=== PATIENT | female | born 1995 | race Caucasian/White ===

== ENCOUNTER 2025-07-05 15:57 | Emergency (ER) | payer OTHER, SELFPAY ==
[2025-07-05 16:07] VITALS: BP 126/66; PULSE 83; RESP 18; TEMP 36.3; O2SAT 99; BMI 39.3
--- NOTE | 2025-07-05 16:07 | ED.ANIMALBIT ---
HPI - Animal Bite General Chief Complaint: Animal Bite Stated Complaint: Cat bite Time Seen by Provider: 07/05/25 16:12 Source: patient Mode of arrival: ambulatory Limitations: no limitations History of Present Illness ED Provider: Tasneem Holly APRN HPI narrative: 30-year-old female who is healthy is right-hand dominant presents the ER with complaints of cat bite to the right hand. 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 Today she was feeding a feral cat when it bit her in the right hand. Rabies vaccine is unknown. The patient has ever been vaccinated for rabies. She has no other complaints Related Data Previous Rx's ?Medication ?Instructions ?Recorded amoxicillin 875 mg-potassium 1 tab PO BID #10 tabs 07/05/25 clavulanate 125 mg tablet Allergies Allergy/AdvReac Type Severity Reaction Status Date / Time No Known Allergies Allergy Verified 07/05/25 16:09 Review of Systems Review of Systems: Yes all other systems are reviewed and are negative Constitutional: Constitutional: Reports no additional constitutional complaints, Denies body ache(s), Denies chills, Denies fever(s), Denies headache(s) and Denies weakness Eyes: Eyes: Reports no additional eye complaints and Denies change in vision ENT: Reports system reviewed and no additional complaints, except as documented, Denies dizziness, Denies headache(s), Denies nasal congestion, Denies nasal discharge and Denies neck pain Cardiovascular: Cardiovascular: Reports no additional cardiovascular complaints, Denies chest pain, Denies leg edema and Denies dyspnea Respiratory: Respiratory: Reports no additional respiratory complaints, Denies cough and Denies dyspnea Gastrointestinal: Gastrointestinal: Reports no additional gastrointestinal complaints, Denies abdominal pain, Denies diarrhea, Denies nausea and Denies vomiting Genitourinary: Genitourinary: Reports no additional female genitourinary complaints and Denies urinary incontinence Musculoskeletal: Musculoskeletal: Reports no additional musculoskeletal complaints, Denies back pain, Denies arthralgias, Denies joint swelling, Denies neck pain, Denies numbness and Denies tingling Integumentary/Breasts: Skin/Breast: Reports system reviewed and no additional complaints, except as docu, Denies rash and Reports wounds Neurologic: Reports system reviewed and no additional complaints, except as documented, Denies Abnormal speech present, Denies dizziness, Denies headache(s), Denies numbness, Denies tingling and Denies weakness [facility] Past Medical History Attestation statement: The following information was validated with the patient. Source: old records reviewed and nursing notes reviewed Social History Social History Advance Directives: No Advance Directives Information Provided: No Physical Exam ED Vital Signs: Vital Signs - 24 hr 07/05/25 16:07 Temperature 97.3 F Pulse Rate 83 Respiratory Rate 18 Blood Pressure 126/66 Pulse Oximetry 99 Oxygen Delivery Method Room Air BMI result Body Mass Index 39.3 Const General: cooperative, healthy appearing, comfortable and no acute distress Orientation/consciousness: patient oriented x3 Limitations: no limitations HENMT Head: Yes normal to inspection Ears: hearing grossly normal bilaterally General nose exam: Normal external nose present Face and sinus: Yes normal facial exam Mouth: Normal oral and palatal mucosa present Throat: Yes posterior oropharynx normal Eyes General: appearance normal, both eyes and all related structures Pupils: Equal, round and reactive pupils present Neck Neck: Yes normal visual inspection Chest Chest palpation & inspection: normal inspection of the chest Resp Effort & Inspection: normal respiratory effort Auscultation: clear to auscultation bilaterally Cardio Rate: regular rate Rhythm: regular rhythm Peripheral pulses: Peripheral pulses 2+ throughout GI Inspection: Yes normal to inspection Palpation (GI): Soft to palpation and nontender Auscultation: normal bowel sounds Back/Spine/Pelvis Thoracic/Lumbar Spine: thoracic and lumbar spine normal to inspection Skin General skin exam: no rashes or lesions noted Neuro General: patient oriented x3, no focal motor deficits and normal sensation to monofilament Cranial nerves: Yes Equal, round and reactive pupils present Cognition (Neuro): normal cognition Speech: No Abnormal speech present Gait exam (Neuro): Normal gait present Motor exam (neuro): 5/5 motor strength present throughout Extrem Other: Small abrasion noted to the right dorsal hand Course Course Course Narrative: Tasneem Holly DINKEY MOTOR OPERATOR 07/05/25 1717 This is a rapid medical exam. Deferred additional HPI, ROS, PE to primary provider. 30 yo female with no known medical history, right hand dominant here with cat bite to right hand. This was a feral cat with unknown rabies vaccine series. Will order rabies series VSS Medications Administered Discontinued Medications Generic Name Dose Route Start Last Admin Trade Name Freq PRN Reason Stop Dose Admin Rabies Immune Globulin 2,413.12 unit 07/05/25 16:11 07/05/25 16:37 Rabies Immune Globulin/Pf 1,500 Unit/5 Ml Vial 20 unit/kg (2413.12 unit) 07/05/25 16:12 2,413.12 unit IM Administration ONCE ONE Rabies Vaccine 1 ml 07/05/25 16:11 07/05/25 16:36 Rabies Vaccine (Pcec)/Pf 1 Ml Vial IM 07/05/25 16:12 1 ml .ONCE ONE Administration Medical Decision Making Medical Decision Making [facility] Narrative: 30 year-old female who is healthy is right-hand dominant presents the ER with complaints of cat bite to the right hand. 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 Today she was feeding a feral cat when it bit her in the right hand. Rabies vaccine is unknown. The patient has ever been vaccinated for rabies. She has no other complaints Small abrasion to right hand The site was cleansed and a bandage was applied. I injected 1ml of rabies antivert (IGG) into the site. She received the additional antibody IM by nursing as well as the rabies vaccine. I ordered her follow-up rabies through the infusion center. I Notified the statistical secretary (Blanca). I will send her home on pptx antibiotics. Reviewed worrisome signs and symptoms of when to return to the emergency room. Comfortable plan for discharge home Differential Diagnosis Differential Diagnoses: The differential diagnosis associated with the presentation includes Cat bite Admission/Observation Consideration of admission/observation: Escalation of care including admission/observation considered Lab Data [facility] Lab Attestation statement: I reviewed the patient's lab results. Prescription Management I considered prescription management with: Antibiotic Discharge Plan Discharge Clinical Impression: Cat bite Patient Disposition: Home, Self-Care Instructions: Animal Bite (ED) Additional Instructions: Rabies follow up with the [facility] Infusion Center: Upon discharge from the ED today, you will be contacted by the Infusion Center to schedule your follow up Rabies vaccines. You will need a total of 3 more injections. If for some reason you do not receive a call, please call the Infusion Center directly at [phone]. Follow up with your primary care provider after completion of the vaccine to have a titer drawn to ensure the vaccines effectiveness. Prescriptions: New amoxicillin-pot clavulanate 875-125 mg tablet 1 tab PO BID Qty: 10 0RF Referrals: Franci Wynne, SOFTWARE LICENSING ANALYST [Primary Care Provider, Internal Medicine] Stand Alone Forms: Work/School Release Print Language: Mozambican
[2025-07-05] MEDS: Rabies Vaccine (PCEC)/PF 1 ML VIAL IM (16:36)
[2025-07-05 16:52] VITALS: BP 126/66; PULSE 83; RESP 18; TEMP 36.3; O2SAT 99
--- OUTSIDE RECORDS SUMMARY | 2025-07-05 17:16 | XMS_ITS | Patient Health Record ---
Author Organization [facility] [address] [facility] Address [address] [place] [address] Care Team Providers Care Diabetes Educator Name Role Phone Shana Tony Unavailable [phone] Reason For Referral No Information Medications Medication SIG (Take, Route, Fr equency, Duration) Notes Start Date End Date Status Apri 0.15-30 MG-MCG 1 tablet Orally Once a day, appointment needed for additional refills. No refills after this until one is made. [facility]- 04/04/2014 Ac tive Apri 0.15MG 1 ORAL daily; Duration: -3 [facility]- 03/07/2013 Active Problems Problem Type SNOMED Code ICD Code Onset Dates Problem Status W/U Status Risk Notes Problem Dysmenorrhea (851088804) Dysmenorrhea (625.3) Active confirmed Diag Problem Contraception care education done (700284313845794) General counseling for prescription of oral contraceptives (V25.01) Active confirmed Diag Problem Surveillance of oral contraception done ([id number]) Surveillance of previously prescribed contraceptive pill (V25.41) Active confirmed Diag Plan Of Treatment No Information Insurance Providers Payer Name Payer Address Payer Phone Subscriber Number Group Number Insured Name Patient Relationship to Insured Coverage Start Date Coverage End Date [employer] [place] [address] [place] [address] [id number] HARMEET HUDSON Self - patient is the insured
--- OUTSIDE RECORDS SUMMARY | 2025-07-05 17:16 | XMS_ITS ---
Author Name [facility] Organization Unknown History of Medication Use Medication Directions Dispensed Refills Start Date End Date Stat 10/01 () 1 mg-20 mcg tablet Take 1 tablet every day by oral route. 01/27/2024 active metronidazole 500 mg tablet Take 1 tablet twice a day by oral route for 5 days. 01/27/2024 active ferrous sulfate 325 (65 FE) MG tablet Take 2 hours before or 4 hours after acid reducers. Take 1 tablet on alternate days. 11/28/2023 active DULoxetine (CYMBALTA) 60 MG capsule TAKE 1 CAPSULE DAILY 10/07/2023 11/28/2023 active norethindrone-ethiny l estradiol (10/01) 1-20 MG-MCG per tablet Take 1 tablet by mouth daily. 08/12/2023 active metronidazole 500 mg tablet active 10/01 () 1 mg-20 mcg tablet active duloxetine 60 mg capsule,delayed release sprinkle Take 1 capsule every day by oral route. active Problems Problem Status Onset Date Problem Type Date of Resoluti on Source Iron deficiency active 2024-03-06 ProblemAct [facility] Thrombocytosis active 2024-03-[address] Depressive disorder active 2024-01-27 ProblemAct [facility] Anxiety active 2024-01-27 ProblemAct [facility] Abnormal cervical Papanicolaou smear active 2024-01-27 ProblemAct [facility] Encounters Encounter Type Encounter Reason Primary Diagnosis Location Date Ambulatory Medication Problem Medication Problem [facility] 05/14/2025 Ambulatory Hip Pain Hip Pain [facility] 04/02/2025 Ambulatory Follow-up Follow-up [facility] 03/06/2024 Ambulatory [place] [facility] 02/28/2024 Ambulatory no current diagnosis no current diagnosis [facility] 01/27/2024 Ambulatory Follow-up Follow-up [facility] 01/23/2024 Ambulatory [facility] 01/12/2024 Ambulatory Follow-up Follow-up [facility] 11/28/2023 Ambulatory [facility] 11/07/2023 Ambulatory Thrombocytosis, unspecified Thrombocytosis, unspecified [facility] 11/07/2023 Ambulatory Anxiety disorder, unspecified Anxiety disorder, unspecified [facility] 08/12/2023 Ambulatory [facility] 07/15/2023 Ambulatory Collabor[facility] 05/05/2023 Care Team Organization Name Specialty Phone Email Start Date End Da te [facility] 01/27/2024 [facility] 01/27/2024 [facility] [place] [facility] 10/02/2023 06/12/2025 [facility] Dior [facility]ers Primary Care 10/02/202301/05 [facility] Primary [facility] 08/12/2023 06/12/2025 [facility] 08/12/2023 02/17/2024 [facility] NO PCP Primary Care 08/12/2023 08/12/2023
--- OUTSIDE RECORDS SUMMARY | 2025-07-05 17:16 | XMS_ITS | Encounter Summary ---
Author Organization [facility] Address [address] [place] [address] Care Team Providers Care Dye Blender Name Role Phone Franci Wynne APRN Primary Care Provider + Encounter Details Date Type Department Care Team (Late st Contact Info) Description 11/15/2023 Scanned Document [facility] Department Of Hematology/Oncology [place] [address] [place] [address] Savanah Snow MD [address] [place] [address] Social History Tobacco Use Types Packs/Day Years Used Date Smoking Tobacco: Never Smokeless Tobacco: Never Alcohol Use Standard Drinks/Week Comments Yes 2 (1 standard drink = 0.6 oz pur e alcohol) socially, occasionally at home PHQ-2 Answer Date Recorded PHQ-2 Total Score 0 08/12/2023 Comments No Sex and Gender Information Value Date Recorded Sex Assigned at Female 07/26/2023 10:03 PM EST Legal Sex Female 6:56 PM EST Gender Identity Not on file Sexual Orientation Not on file documented as of this encounter Plan of Treatment Upcoming Encounters Date Type Department Care Team (Late Contact Info) Description 07/15/2025 10:15 AM EST Office Visit [facility] [address] [place] [address] Franci Wynne APRN [address] [facility] [address] [place] [address] documented as of this encounter Procedures Procedure Name Priority Date/Time Associated Diagnosis Comments LAB RESULT 11/15/2023 4:09 AM EST documented in this encounter Results * LAB RESULT (11/15/2023 4:09 AM EST) us Savanah Snow MD HX AMB PROCEDURES Final Result documented in this encounter Visit Diagnoses Not on filedocumented in this encounter Care Teams Dye Blender Relationship Specialty Start Date End Date Franci Wynne APRN [address] [place] [address] PCP - General Internal Medicine 08/12/23 documented as of this encounter
--- OUTSIDE RECORDS SUMMARY | 2025-07-05 17:16 | XMS_ITS | Clinical Summary ---
Author Organization Formerly [facility] Address [address] [place] [address] Care Team Providers Care Test Engineer Name Role Phone Franci Wynne APRN Primary Care Provider + Allergies No known active allergies Medications norethindrone-eth inyl estradiol (10/01) 1-20 MG-MCG per tabletIndications :Encounter for other general counseling or advice on contraception Take 1 tablet by mouth daily. 90 tablet 3 08/12/20 23 Active ferrous sulfate 325 (65 FE) MG tabletIndications :Iron deficiency Take 2 hours before or 4 hours after acid reducers. Take 1 tablet on alternate days. 30 tablet 1 11/28/19 24 Active multivitamin Tab tablet Take 1 tablet by mouth daily. Active DULoxetine (CYMBALTA) 30 MG capsuleIndication s:Anxiety Take 1 capsule (30 mg total) by mouth daily. Please take with 20mg for a total dose of 50mg daily 90 capsule 05/14/20 25 Active DULoxetine (CYMBALTA) 20 MG capsuleIndication s:Anxiety Take 1 capsule (20 mg total) by mouth daily. Please take with 30mg capsule for total dose of 50mg 90 capsule 1 05/14/20 25 Active FLUoxetine (PROzac) 10 MG capsuleIndication s:Mixed obsessional thoughts and acts TAKE ONE CAPSULE BY MOUTH EVERY DAY 30 capsule 06/26/20 25 Active FLUoxetine (PROzac) 10 MG capsuleIndication s:Mixed obsessional thoughts and acts Take 1 capsule (10 mg total) by mouth daily. 30 capsule 05/14/20 025 Discontinued Active Problems Problem Noted Date Diagnosed Date Thrombocytosis 03/06/2024 Iron deficiency 03/06/2024 Encounters Date Type Department Care Team Description 06/25/[address] [place] [address] Franci Wynne APRN Mixed obsessional thoughts and acts 05/14/2025 3:15 PM EDT Office Visit [facility] [address] [facility] [address] [place] [address] Franci Wynne, CAMI Anxiety (Primary Dx); Mixed obsessional thoughts and acts 05/14/2025 Travel 05/05/2025 Orders Only [facility] [address] [facility] [address] [place] [address] Franci Wynne, PROCESS CONTROL TECHNICIAN Mixed obsessional thoughts and acts (Primary Dx) from Last 3 Months Immunizations Immunization Administration Dates Next Due Influenza, Unspecified 08/14/2024,06/23/2023 Family History Medical History Relation Name Comments Ulcers Father Dementia Maternal Grandfather Oz Dementia Maternal Grandmother Pat Basal cell carcinoma Mother Alysha Cancer Mother Alysha basal cell carc inoma - one mole, removed in June 2023 Cancer Paternal Grandfather Valerio Lung an d brain cancer Relation Name Status Comments Father Maternal Grandfather Oz Maternal Grandmother Pat Mother Alysha Paternal Grandfather Valerio Alive Social History Tobacco Use Types Packs/Day Years Used Date Smoking Tobacco: Never Smokeless Tobacco: Never Tobacco Cessation:Counseling Given: Not Answered Alcohol Use Standard Drinks/Week Comments Yes 2 (1 standard drink = 0.6 oz pur e alcohol) socially, occasionally at home [facility] Utilities Answer Date Recorded In the past 12 months has [employer], gas, oil, or water company threatened to shut off services in your home? No 12/05/2024 Social Connection and Isolation Panel Answer Date Recorded In a typical week, how many times do you talk on the phone with family, friends, or neighbors? Three times a week 12/05/2024 Frequency of Social Gatherin gs with Friends and Family Not on file 12/05/2024 Attends [employer] Services Not on file 12/05 Active Member of Clubs or Organizations Not on f ile 12/05/2024 Attends Club or Organization Meetings Not on frederick e 12/05/2024 Marital Status Not on file 12/05/2024 AUDIT-C Answer Date Recorded Q1: How often do you have a drink containing alc ohol? 2-4 times a month 12/05/2024 Q2: How many drinks containi ng alcohol do you have on a typical day when you are drinking? 1 or 2 12/05/2024 Frequency of Binge Drinking Not on file 11/11 PHQ-2 Answer Date Recorded PHQ-2 Total Score 0 08/12/2023 Hunger Vital Sign Answer Date Recorded Within the past 12 months, y ou worried that your food would run out before you got the money to buy more. Never true 12/06/19 25 Within the past 12 months, t he food you bought just didn't last and you didn't have money to get more. Never true 12/05/2024 PRAPARE - Transportation Answer Date Re corded In the past 12 months, has l ack of transportation kept you from medical appointments or from getting medications? No 11/11 In the past 12 months, has l ack of transportation kept you from meetings, work, or from getting things needed for daily living? No 12/05/2024 Housing Stability Vital Sign Answer Junior e Recorded In the last 12 months, was t here a time when you were not able to pay the mortgage or rent on time? No 12/05/2024 In the past 12 months, how m any times have you moved where you were living? 0 12/05/2024 At any time in the past 12 m [facility], were you homeless or living in a long term (including now)? No 12/05/2024 Education Answer Date Recorded What is the highest level of school you have completed or the highest degree you have received? Bachelor's degree (e.g., BA, AB, BS) 12/05/2024 Comments No Sex and Gender Information Value Date Recorded Sex Assigned at Female 07/26/2023 10:03 PM EST Legal Sex Female 6:56 PM EST Gender Identity Not on file Sexual Orientation Not on file Last Filed Vital Signs Vital Sign Reading Time Taken Comments Blood Pressure 120/88 05/14/2025 3:09 PM EDT Pulse 81 05/14/2025 3:09 PM EDT Temperature 36.2 C (97.1 F) 05/14/2025 3:09 PM EDT Respiratory Rate 16 05/14/2025 3:09 PM EDT Oxygen Saturation 98% 05/14/2025 3:09 PM EDT Inhaled Oxygen Concentration - - Weight 118 kg (260 lb 9.6 oz) 05/14/2025 3:09 PM EDT Height 177.8 cm (5' 10 ) 05/14/2025 3:09 PM EDT Body Mass Index 37.39 05/14/2025 3:09 PM EDT Plan of Treatment Upcoming Encounters Date Type Department Care Team (Late st Contact Info) Description 07/15/2025 10:15 AM EST Office Visit [facility] [address] [facility] [address] [place] [address] Franci Wynne APRN [address] [facility] [address] [place] [address] Health Maintenance Due Date Last Done Comments DTaP/Tdap/Td Vaccines (1 - Tdap) 01/02/2015 Hepatitis B Vaccines (1 of 3 - 19+ 3-dose series) 01/02/2015 Influenza Vaccine 04/12/2025 08/14/2024, 06/23/2023 COVID-19 Vaccine (1 - 2023-2 5 season) 2025 Physical 08/12/2026 08/12/2023 Pap Smear (Ages 21-65) 01/26/2027 01/27/2024 HIV Screening Completed 09/15/2023 Hepatitis C Virus Screening Completed 09/15/2023 HPV Vaccines (No Doses Required) Completed Pneumococcal Vaccine: Pediatric (0-5 Years) and At-Risk Patients (6 to 49 Years) Aged Out No longer eligible b ased on patient's age to complete this topic Procedures Procedure Name Priority Date/Time Associated Diagnosis Comments THINPREP PAP TEST (POULTRY CUTTER) WITH HPV REFLEX Routine 01/27/2024 12:00 AM EDT HIV 1/2 AG/AB CMIA REFLEX TO CONFIRMATION Routine 09/15/2023 10:19 AM EST Encounter for screening for HIV HEPATITIS C VIRUS (HCV) ANTIBODY Routine 09/15/2023 10:19 AM EST Need for hepatitis C screening test from Last 3 Months or Most Recently Relevant to Health Maintenance Results * ThinPrep Pap Test (Health Plan Advisor) with HPV Reflex (01/27/2024 12:00 AM EDT) Clinical Information [facility] Comment:None given LMP: [facility] Comment:NONE GIVEN Previous PAP: [facility] Comment:NONE GIVEN Previous Biopsy [facility] Comment:NONE GIVEN Source: [facility] Comment:Cervix, Endocervix Statement of Adequacy: [facility] Comment: Satisfactory for evaluation. Endocervical/transformation zone component absent. Interpretation/Resu lt: [facility] Comment: Cytology Results: Negative for intraepithelial lesion or malignancy. Comment: [facility] Comment: This Pap test has been evaluated with computer assisted technology. Mandarin Tutor: [facility] Comment: [facility], CT(ASCP) CT screening location: [place] [address] Review Mandarin Tutor: [facility] Comment: [facility], CT(ASCP) CT screening location: [place] [address] Comment [facility] Comment: EXPLANATORY NOTE: The Pap is a screening test for cervical cancer. It is not a diagnostic test and is subject to false negative and false positive results. It is most reliable when a satisfactory sample, regularly obtained, is submitted with relevant clinical findings and history, and when the Pap result is evaluated along with historic and current clinical information. 01/27/2024 01/28/2024 5:0 6 PM EDT Narrative [facility] - 01/31/2024 4:29 PM EDT [id number] NG us Carrie Carey PROCESS CONTROL TECHNICIAN LAB AMB PATH/CYTO ORDERA BLES Final Result [facility] [address] [facility] [address], [place] [address] * HIV 1/2 Ag/Ab CMIA Reflex to Confirmation (09/15/2023 10:19 AM EST) HIV Ag/Ab, 4th Gen NON-REACT JESS NON-REACT JESS [email or web address] Comment: HIV-1 antigen and HIV-1/HIV-2 antibodies were not detected. There is no laboratory evidence of HIV infection. PLEASE NOTE: This information has been disclosed to you from records whose confidentiality may be protected by state law. If your state requires such protection, then the state law prohibits you from making any further disclosure of the information without the specific written consent of the person to whom it pertains, or as otherwise permitted by law. A general authorization for the release of medical or other information is NOT sufficient for this purpose. For additional information please refer to http://[employer]/faq/ZAC587 (This link is being provided for informational/ educational purposes only.) The performance of this assay has not been clinically validated in patients less than 2 years old. Blood specimen (specimen) Blood specimen / Unknown 09/15/2023 10:19 AM EST 09/15/2023 10:19 AM EST Narrative [facility] - 09/16/2023 1:00 AM EST FASTING:YES FASTING: YES Franci Wynne PROCESS CONTROL TECHNICIAN LAB BLOOD ORDERABLES Fin al Result Performing Organization Address City/State/[facility] Co de Phone Number [employer] [address] [place] [phone] * Hepatitis C Virus (HCV) Antibody - [facility] (09/15/2023 10:19 AM EST) Pathologist [facility] Hepatitis C Antibody NON-REACT JESS NON-REACT JESS [email or web address] Comment: HCV antibody was non-reactive. There is no laboratory evidence of HCV infection. In most cases, no further action is required. However, if recent HCV exposure is suspected, a test for HCV RNA (test code 34497) is suggested. For additional information please refer to http://[employer]/faq/VNZ43f5 (This link is being provided for informational/ educational purposes only.) Blood specimen (specimen) Blood specimen / Unknown 09/15/2023 10:19 AM EST 09/15/2023 10:19 AM EST Narrative [facility] - 09/16/2023 1:00 AM EST FASTING:YES FASTING: YES us Franci Wynne APRN LAB BLOOD ORDERABLES Fin al Result [facility] [address] [place] [phone] from Last 3 Months or Most Recently Relevant to Health Maintenance [facility] Care Teams Test Engineer Relationship Specialty Start Date End Date Franci Wynne APRN [address] [place] [address] PCP - General Internal Medicine 08/12/23
== END 2025-07-05 16:52 | disposition home or self-care (01) ==
PROVIDERS: Emergency Provider Emergency Medicine; PCP Nurse Practitioner Primary Care
DX: S61.451A Open bite of right hand, initial encounter (principal); W55.01XA Bitten by cat, initial encounter; Y93.9 Activity, unspecified; Y92.9 Unspecified place or not applicable; Y99.8 Other external cause status; Z23 Encounter for immunization; Z20.3 Contact with and (suspected) exposure to rabies; Z29.14 Encounter for prophylactic rabies immune globulin
CPT/HCPCS: 90375; 90471; 90472; 90675; 96372; 99282; 99284

== ENCOUNTER 2025-07-19 11:00 | Outpatient (RCR) | payer OTHER, SELFPAY ==
[2025-07-08 15:30] VITALS: BP 133/85; PULSE 82; RESP 16; TEMP 37; O2SAT 99
[2025-07-08] MEDS: Rabies Vaccine (PCEC)/PF 1 ML VIAL IM (15:35)
[2025-07-12 10:11] VITALS: BP 142/85; PULSE 82; RESP 16; TEMP 36.7; O2SAT 98
[2025-07-12] MEDS: Rabies Vaccine (PCEC)/PF 1 ML VIAL IM (10:12)
[2025-07-19 11:07] VITALS: BP 140/83; PULSE 82; RESP 16; TEMP 37.1; O2SAT 99
[2025-07-19] MEDS: Rabies Vaccine (PCEC)/PF 1 ML VIAL IM (11:10)
== END 2025-07-19 11:12 | disposition home or self-care (01) ==
LOC: HO.INF 11:00
PROVIDERS: Visit Provider Nurse Practitioner Family
DX: Z20.3 Contact with and (suspected) exposure to rabies (principal); T14.8XXD Other injury of unspecified body region, subsequent encounter; W55.01XD Bitten by cat, subsequent encounter
CPT/HCPCS: 90471; 90675